=== PATIENT | male | born 1960 | race African-American/Black ===

== ENCOUNTER 2024-10-05 13:02 | Emergency (ER) | payer OTHER ==
[2024-10-05 13:59] LABS: #Basophils 0.04 10x3/uL (0.0-0.2); #Eosinophils 0.13 10x3/uL (0.0-0.5); #Monocytes 0.52 10x3/uL (0.0-1.1); #Neutrophils 1.88 10x3/uL (1.5-8.4); %Basophils 0.8 % (0.0-2.0); %Eosinophils 2.6 % (0.0-6.0); %Lymphocytes 47.9 % (18.0-47.0); %Monocytes 10.5 % (0.0-10.0); %Neutrophils 38.2 % (40.0-75.0); Hematocrit 32.7 % (38.8-50.0); Hemoglobin 11.1 g/dL (13.5-17.5); Mean Corpuscular Hemoglobin 28.0 pg (27.0-33.0); Mean Corpuscular Volume 82.6 fL (81.2-95.1); Platelet Count 204 10x3/uL (150-450); Red Blood Cell (RBC) Count 3.96 10x6/uL (4.32-5.72); White Blood Cell (WBC) Count 4.93 10x3/uL (3.5-10.5)
[2024-10-05 14:14] LABS: ALT (SGPT) 15 U/L (Less than 45); AST (SGOT) 20 U/L (11-34); Albumin 3.6 g/dL (3.1-4.5); Alkaline Phosphatase 44 U/L (40-110); Anion Gap 14 mmol/L (10-20); BUN (Urea Nitrogen) 6 mg/dL (8.4-25.7); Bilirubin, Total 0.4 mg/dL (0.3-1.2); Calc. Creatinine Clearance 0 mL/min (70-130); Calcium 8.0 mg/dL (7.8-10.44); Carbon Dioxide 16 mmol/L (23-31); Chloride 111 mmol/L (98-107); Globulin 2.4 g/dL (2.4-3.5); Glucose 121 mg/dL (80-115); Magnesium 1.7 mg/dL (1.6-2.6); Potassium 3.4 mmol/L (3.5-5.1); Sodium 138 mmol/L (136-145)
[2024-10-05 14:18] LABS: Troponin I Less than 0.010 ng/mL (< 0.028)
== END 2024-10-05 16:19 | disposition home or self-care (01) ==
LOC: CSHERS 13:02
DX: R55 Syncope and collapse (principal); I10 Essential (primary) hypertension
CPT/HCPCS: 71045; 80053; 83735; 83880; 84484; 85025; 93005